=== PATIENT | female | born 2000 | race Two or more races ===

== ENCOUNTER → 2025-03-04 | Outpatient (CLI) | payer MEDICAID, SELFPAY ==
--- NOTE | 2025-03-04 | XR_ITS ---
Examination: Urinary bladder sonography complete TECHNIQUE: Grayscale sonographic images urinary bladder Exam date and time: March 04, 2025 1346 hours INDICATIONS: Difficulty voiding 2 weeks. FINDINGS: No bladder mass or bladder calculi Bladder prevoid by [id number] cc postvoid volume 0 cc Incidental note free fluid in the lower uterine segment and left adnexal region IMPRESSION: No bladder mass or bladder calculi Recommend pelvic sonography follow-up to assess free fluid in the lower uterine segment and left adnexal region
== END | disposition home or self-care (01) ==
LOC: CDIM 12:29
PROVIDERS: Referring Provider Physician Assistant Medical; Visit Provider Physician Assistant Medical
DX: N32.9 Bladder disorder, unspecified (principal); R39.14 Feeling of incomplete bladder emptying
CPT/HCPCS: 76857